=== PATIENT | male | born 1990 | race Caucasian/White ===

== ENCOUNTER 2020-04-09 05:31 | Emergency (ER) | payer MEDICAID ==
[~2020-04-09] VITALS: Ht 180.3 cm; Wt 73.9 kg
[2020-04-09 05:36] VITALS: BP 156/100
--- NOTE | 2020-04-09 05:36 | NUR ---
Pt ambulated to ER bed 11 w/ steady gait.
--- NOTE | 2020-04-09 05:36 | NUR ---
30 YR OLD MALE PRESENTED TO THE ER WITH CC OF DOG BITE. PT IS AOX4. PT STATES DOG BIT RIGHT HAND APPROXIMATELY 1 HR AGO. PT STATES 2/10 SHARP NON-RADIATING RIGHT HAND PAIN FROM DOG BITE. PT HAS 1 SINGLE RED BITE KEVIN. PT HAS NO SIGNS OF BLEEDING. PT DENIES OTHER MEDICAL COMPLAINTS. BED LOCKED IN LOWEST POSITION. HISTORY- NONE ALLERGIES- NONE
--- NOTE | 2020-04-09 05:40 | NUR ---
ERMD AT BEDSIDE FOR MEDICAL EVALUATION.
[2020-04-09 06:20] VITALS: BP 156/100
--- NOTE | 2020-04-09 06:20 | NUR ---
ANIMAL BITE REPORT FAXED TO [facility] AT FAX# = [phone].
--- NOTE | 2020-04-09 06:20 | NUR ---
Patient discharged with v/s stable. Written and verbal after care instructions given and explained. Patient verbalized understanding. Ambulatory with steady gait. All questions addressed prior to discharge. Advised to follow up with PMD.
== END 2020-04-09 06:20 | disposition home or self-care (01) ==
LOC: MED 05:31
DX: S61.451A Open bite of right hand, initial encounter (principal); F17.210 Nicotine dependence, cigarettes, uncomplicated; W54.0XXA Bitten by dog, initial encounter; Y93.89 Activity, other specified; Y92.89 Other specified places as the place of occurrence of the external cause; Y99.8 Other external cause status
CPT/HCPCS: 90471; 90715; 99283

== ENCOUNTER 2020-07-26 00:09 | Emergency (ER) | payer SELFPAY ==
[~2020-07-26] VITALS: Ht 180.3 cm; Wt 65.8 kg
[2020-07-26 00:13] VITALS: BP 124/82
[2020-07-26] MEDS: NACL 0.9% 1,000 ML IV ONE (00:40)
[2020-07-26] MEDS: PANTOPRAZOLE 40 MG INJ VIAL IVP ONE (00:40)
[2020-07-26] MEDS: ONDANSETRON 4 MG/2 ML VIAL IVP ONE (00:41)
[2020-07-26 00:59] LABS: BASOPHILS # (AUTO) 0.1 K/uL (0.00-0.22); BASOPHILS % (AUTO) 0.4 % (0.0-2.0); HEMATOCRIT 46.6 % (36-52); HEMOGLOBIN 15.6 g/dL (12.0-18.0); LYMPHOCYTES # (AUTO) 1.3 K/uL (2.0-11.5); LYMPHOCYTES % (AUTO) 8.4 % (20.5-51.1); MEAN CORPUSCULAR HEMOGLOBIN 32 pg (27-31); MEAN CORPUSCULAR HGB CONC 34 g/dL (33-37); MEAN CORPUSCULAR VOLUME 95.8 fL (80-94); MONOCYTES # (AUTO) 0.3 K/uL (0.8-1.0); MONOCYTES % (AUTO) 1.9 % (1.7-9.3); NEUTROPHILS # (AUTO) 13.4 K/uL (1.8-7.7); NEUTROPHILS % (AUTO) 89.3 % (42.2-75.2); PLATELET COUNT (AUTO) 265 K/uL (140-450); RED BLOOD CELL COUNT(AUTO) 4.87 MIL/uL (4.20-6.10); RED CELL DISTRIBUTION WIDTH 13.3 % (11.6-13.7)
[2020-07-26 01:06] LABS: ANION GAP 15.7 (8-16); CARBON DIOXIDE 27.7 mmol/L (21-32); CREATININE 0.7 mg/dL (0.6-1.3); POTASSIUM 4.4 mmol/L (3.5-5.1)
[2020-07-26 01:12] LABS: ALBUMIN 4.4 g/dL (3.4-5.0); TOTAL BILIRUBIN 0.5 mg/dL (0.0-1.0)
[2020-07-26 01:28] LABS: BARBITURATE, URINE NEGATIVE ng/ml (NEG <=200); BENZODIAZEPINE, URINE NEGATIVE ng/mL (NEG <=200); CANNABINOID, URINE NEGATIVE ng/mL (NEG <=50); COCAINE, URINE NEGATIVE ng/mL (NEG <=300); OPIATE, URINE NEGATIVE ng/mL (NEG <=2000); PHENCYCLIDINE SCREEN,URINE NEGATIVE ng/mL (NEG <=25)
[2020-07-26 02:45] VITALS: BP 107/72
[2020-07-26] MEDS ORDERED: PANT40EC PO (03:04)
[2020-07-26] MEDS ORDERED: ONDA-24 SL (03:04)
== END 2020-07-26 03:20 | disposition home or self-care (01) ==
LOC: MED 00:09
DX: K92.0 Hematemesis (principal); F10.129 Alcohol abuse with intoxication, unspecified; Y90.9 Presence of alcohol in blood, level not specified
CPT/HCPCS: 36415; 71045; 80053; 80305; 85025; 86900; 86901; 96361; 96374; 96375; 99284; C9113; G0482; J2405; J7030